=== PATIENT | female | born 1995 | race Caucasian/White ===

== ENCOUNTER 2016-10-08 13:32 | Emergency (ER) | payer MEDICAID, OTHER ==
[~2016-10-08 13:32] MED LIST: TRAM50 PO
[2016-10-08 13:50] VITALS: BP 93/62; PULSE 83; RESP 16; TEMP 98.7; O2SAT 97
[2016-10-08 14:12] LABS: BLOOD, URINE NEG (NEG); GLUCOSE,URINE NEG (NEG); KETONE, URINE NEG (NEG); NITRITE,URINE NEG (NEG); PH, URINE 5.5 (5.0-8.5)
[2016-10-08 14:43] LABS: METHOD OF COLLECTION CLEAN CATCH; URINE COLOR YELLOW (YELLW/STRAW)
[2016-10-08 14:44] LABS: COMMENT (UR) CULT NOT INDICATED; CULTURE IF INDICATED CULT NOT INDICATED; RBC, URINE 0-3 /hpf (0-3); SQUAMOUS EPITHELIAL CELL URINE 0-5 /hpf (0-5); WBC, URINE 0-2 /hpf (0-5)
[2016-10-08] MEDS ORDERED: AZITHROMYCIN PWD FOR SUSP 1 GM PACKET PO ONE (14:45)
--- NOTE | 2016-10-08 14:45 | PD ---
HPI Chief Complaint: Abdominal Pain Time Seen by Provider: 14:23 Travel History International Travel<30 days: No Contact w/Intl Traveler<30days: No Traveled to known affect area: No History of Present Illness HPI The patient was seen and examined in the presence of the nurse. She complains of left-sided pelvic pain. Duration 3 days. She also complains of vaginal discharge. Earlier she had vaginal itching. Denies bleeding. Some severity is mild to moderate. No alleviating factors. She's been eating well. No vomiting or diarrhea or fever. PFSH Past Medical History Medical History: Denies Significant Hx Anemia: Yes Diminished Hearing: No Influenza Vaccination: No ?: Not LMP: 07/12 DENIES : 1 Para: 1 Past Surgical History Surgical History: No Previous Surgery Social History Alcohol Use: No Tobacco Use: No Substance Use: No Allergies-Medications (Allergen,Severity, Reaction): Coded Allergies: No Known Allergies (Unverified , 10/08/16) Reported Meds & Prescriptions Reported Meds & Active Scripts Active No Active Prescriptions or Reported Medications Review of Systems General / Constitutional: No: Fever Eyes: No: Visual changes HENT: No: Headaches Cardiovascular: No: Chest Pain or Discomfort Respiratory: No: Shortness of Breath Gastrointestinal: Positive: Nausea, Abdominal Pain Genitourinary: Positive: Pelvic Pain, No: Dysuria Musculoskeletal: No: Pain Skin: No Rash Neurologic: No: Weakness Psychiatric: No: Depression Endocrine: No: Polydipsia Hematologic/Lymphatic: No: Easy Bruising Physical Exam Narrative GENERAL: Well-nourished, well-developed patient in no apparent distress. SKIN: Warm and dry. Has birthmark on the left cheek and left leg HEAD: Atraumatic. Normocephalic. EYES: Pupils equal and round. No scleral icterus. No injection or drainage. ENT: No nasal bleeding or discharge. Mucous membranes pink and moist. NECK: Trachea midline. No JVD. CARDIOVASCULAR: Regular rate and rhythm. No murmur appreciated. RESPIRATORY: No accessory muscle use. Clear to auscultation. Breath sounds equal bilaterally. GASTROINTESTINAL: Abdomen soft, non-tender, nondistended. Hepatic and splenic margins not palpable. MUSCULOSKELETAL: No obvious deformities. No clubbing. No cyanosis. No edema. NEUROLOGICAL: Awake and alert. No obvious cranial nerve deficits. Motor grossly within normal limits. Normal speech. PSYCHIATRIC: Appropriate mood and affect; insight and judgment normal. Pelvic: No cervical motion tenderness. No blood. There is a whitish discharge in the vault which was sampled. No adnexal mass. Minimal left adnexal tenderness Data Data Last Documented VS Vital Signs Date Time Temp Pulse Resp B/P Pulse Ox O2 Delivery O2 Flow Rate FiO2 10/08/16 13:50 98.7 83 16 93/62 97 Orders Urinalysis - C+S If Indicated (10/08/16 13:56) Ed Urine Pregnancytest Poc (10/08/16 14:06) Wet Prep Profile (10/08/16 14:36) Gc And Chlamydia Pcr (10/08/16 14:36) Azithromycin Powd Pack (Zithromax Powd P (10/08/16 14:45) Labs Laboratory Tests Test 10/08/16 10/08/16 13:55 14:45 Urine Collection Type CLEAN CATCH Urine Color YELLOW Urine Turbidity CLEAR Urine pH 5.5 Urine Specific [place] 1.020 Urine Protein NEG mg/dL Urine Glucose (UA) NEG mg/dL Urine Ketones NEG mg/dL Urine Occult Blood NEG Urine Nitrite NEG Urine Bilirubin NEG Urine Leukocyte Esterase NEG Urine RBC 0-3 /hpf Urine WBC 0-2 /hpf Urine Squamous Epithelial 0-5 /hpf Cells Microscopic Urinalysis Comment CULT NOT INDICATED Urine Collection Time 13:55 Clue Cells (Wet Prep) NONE SEEN Vaginal Trichomonas (Wet Prep) NONE SEEN Vaginal Yeast (Wet Prep) NONE SEEN MDM Medical Decision Making Medical Screen Exam Complete: Yes Emergency Medical Condition: Yes Medical Record Reviewed: Yes Differential Diagnosis Differential diagnosis includes PID, ectopic , ovarian cyst, ovarian torsion, endometriosis. Narrative Course I have reviewed the patient's electronic medical record. Urine is negative Urinalysis is normal Wet prep is negative GC and Chlamydia swabs sent Abdomen is soft and benign and nontender I gave her 2 g of oral Zithromax Tramadol written for symptom relief Has a fairly nonspecific pelvic pain Covered her for cervicitis Not consistent with PID Diagnosis Primary Impression: Pelvic pain Additional Instructions: The patient was advised to follow up with their physician and return if they worsen. Med/Other Pt SpecificInfo: Prescription(s) given Scripts Tramadol 50 Mg Tab50 Mg PO Q6H PRN (PAIN) #20 TAB Ref 0 Prov:Gus Pink MD 10/08/16 Disposition: 01 DISCHARGE HOME Condition: Stable Gus Pink MD Oct 08, 2016 14:45
[2016-10-08] MEDS ORDERED: TRAM50TA PO (15:23)
[2016-10-08 15:49] VITALS: BP 122/65; PULSE 66; RESP 18; O2SAT 99
[2016-10-08 21:33] LABS: CHLAMYDIA PCR NOT DETECTED (NOT DETECT); NEISSERIA PCR NOT DETECTED (NOT DETECT)
== END 2016-10-08 15:54 | disposition home or self-care (01) ==
LOC: PHED 13:32
DX: R10.2 Pelvic and perineal pain (principal); N89.8 Other specified noninflammatory disorders of vagina
CPT/HCPCS: 81001; 84703; 87210; 87491; 87591; 99284

== ENCOUNTER 2016-10-30 17:04 | Emergency (ER) | payer MEDICAID, OTHER ==
[~2016-10-30] VITALS: Ht 157.5 cm; Wt 54.0 kg
[~2016-10-30 17:04] MED LIST changes: -TRAM50 PO; +TRAM50TA PO
[2016-10-30 17:22] VITALS: BP 103/69; PULSE 78; RESP 16; TEMP 97.6; O2SAT 98
[2016-10-30] MEDS ORDERED: ORPHENADRINE INJ 60 MG/2 ML AMP IM ONE (18:45)
[2016-10-30] MEDS ORDERED: BACL10TA PO (18:45)
[2016-10-30] MEDS ORDERED: IBUP800T23 PO (18:45)
[2016-10-30] MEDS ORDERED: KETOROLAC TROMETHAMINE 60 MG/2 ML (IM) VIAL IM ONE (18:45)
--- NOTE | 2016-10-30 18:49 | PD ---
HPI Chief Complaint: Cold / Flu Symptoms Time Seen by Provider: 18:40 Travel History International Travel<30 days: No Contact w/Intl Traveler<30days: No Traveled to known affect area: No History of Present Illness HPI 20-year-old female presents for evaluation of back pain. Symptoms started 1 week ago. It is an aching pain that is worse when breathing or moving. Denies chest pain or shortness of breath, cough or congestion, abdominal pain, nausea or vomiting, hematuria, dysuria, numbness or tingling or weakness in the extremities. She does not recall any trauma or heavy lifting. She has no other complaints. [facility] Past Medical History Medical History: Denies Significant Hx Anemia: Yes Diminished Hearing: No ?: Not LMP: 10/16/16 : 1 Para: 1 Social History Alcohol Use: No Tobacco Use: No Substance Use: No Allergies-Medications (Allergen,Severity, Reaction): Coded Allergies: No Known Allergies (Unverified , 10/30/16) Reported Meds & Prescriptions Reported Meds & Active Scripts Active Baclofen 10 Mg Tab 10 Mg PO TID 10 Days Ibuprofen 800 Mg Tab 800 Mg PO Q6HR PRN Review of Systems Except as stated in HPI: all other systems reviewed are Neg Physical Exam Narrative GENERAL: Well-nourished female in no acute distress SKIN: Warm and dry. No rash HEAD: Atraumatic. Normocephalic. EYES: Pupils equal and round. No scleral icterus. No injection or drainage. ENT: No nasal bleeding or discharge. Mucous membranes pink and moist. NECK: Trachea midline. No JVD. CARDIOVASCULAR: Regular rate and rhythm. No murmur appreciated. RESPIRATORY: No accessory muscle use. Clear to auscultation. Breath sounds equal bilaterally. GASTROINTESTINAL: Abdomen soft, non-tender, nondistended. Hepatic and splenic margins not palpable. MUSCULOSKELETAL: No obvious deformities. No tenderness to palpation along the cervical thoracic or lumbar midline spine. There is some tenderness to palpation to the paravertebral musculature of the lower thoracic region. NEUROLOGICAL: Awake and alert. No obvious cranial nerve deficits. Motor grossly within normal limits. Normal speech. Data Data Last Documented VS Vital Signs Date Time Temp Pulse Resp B/P Pulse Ox O2 Delivery O2 Flow Rate FiO2 10/30/16 17:22 97.6 78 16 103/69 98 Orders Ketorolac Inj (Toradol Inj) (10/30/16 18:45) Orphenadrine Inj (Norflex Inj) (10/30/16 18:45) MDM Medical Decision Making Medical Screen Exam Complete: Yes Emergency Medical Condition: Yes Medical Record Reviewed: Yes Differential Diagnosis Muscle strain, muscle spasm, spondylolysis, spinal stenosis, renal stone, pyelonephritis, costochondritis, pulmonary embolism, pneumothorax Narrative Course 20-year-old female with back pain for 1 week with no trauma. Physical examination is unremarkable. Suspect musculoskeletal pain based on examination. She'll be treated with NSAIDs and muscle relaxants and advised to follow-up with primary care physician. Diagnosis Primary Impression: Back pain Qualified Code: M54.6 - Acute bilateral thoracic back pain Additional Instructions: Medication as needed. Take ibuprofen with meals. Do not drive or drug alcohol when taking baclofen. Avoid heavy lifting or strenuous activity. Follow-up in one week with primary care physician. Return for any emergent medical conditions. Med/Other Pt SpecificInfo: Prescription(s) given Scripts Baclofen 10 Mg Tab10 Mg PO TID 10 Days Ref 0 Prov:Doe Soliman MD 10/30/16 Ibuprofen 800 Mg [id number] Mg PO Q6HR PRN (PAIN) #40 TAB Ref 0 Prov:Doe Soliman MD 10/30/16 Disposition: 01 DISCHARGE HOME Condition: Stable Addy Rocha Oct 30, 2016 18:49
== END 2016-10-30 19:09 | disposition home or self-care (01) ==
LOC: PHEFT 17:04
DX: M54.6 Pain in thoracic spine (principal)
CPT/HCPCS: 99283

== ENCOUNTER → 2016-11-15 | Outpatient (CLI) | payer MEDICAID, OTHER ==
[~2016-11-15] MED LIST changes: +BACL10TA PO; +IBUP800T23 PO; -TRAM50TA PO
[2016-11-15 11:07] LABS: HEMATOCRIT 39.7 % (35.0-46.0); MEAN CELL VOLUME 83.7 FL (80.0-100.0); MEAN CORPUSCULAR HGB CONC 33.4 % (32.0-36.0); PLATELET COUNT 260 TH/MM3 (150-450); RED BLOOD COUNT 4.74 MIL/MM3 (4.00-5.30); RED CELL DISTRIBUTION WIDTH 14.9 % (11.6-17.2); REVIEW FLAG FINAL; WHITE BLOOD COUNT 5.8 TH/MM3 (4.0-11.0)
[2016-11-15 11:14] LABS: APTT (PATIENT) 26.5 SEC (24.3-30.1); PROTHROMBIN TIME - PATIENT 11.2 SEC (9.8-11.6)
[2016-11-15 11:19] LABS: BACTERIA, URINE FEW /hpf; BLOOD, URINE NEG (NEG); GLUCOSE,URINE NEG (NEG); KETONE, URINE NEG (NEG); MUCUS URINE FEW /lpf (OCC); NITRITE,URINE NEG (NEG); SQUAMOUS EPITHELIAL CELL URINE 7 /hpf (0-5); URINE COLOR YELLOW (YELLW/STRAW)
--- NOTE | 2016-11-15 11:24 | EKG ---
Date Performed: 11/15/2016 Time Performed: 11:10:45 PTAGE: 20 years EKG: Sinus rhythm POSSIBLE LEFT ATRIAL ENLARGEMENT POSSIBLE RIGHT VENTRICULAR CONDUCTION DELAY BORDERLINE ECG NO PREVIOUS TRACING DOCTOR: Xavier Man Interpretating Date/Time 11/15/2016 11:22:02
[2016-11-15 11:27] LABS: ALT (GPT) 14 U/L (10-53); ANION GAP 7 MEQ/L (5-15); AST (GOT) 10 U/L (15-37); BICARBONATE 28.7 MEQ/L (21.0-32.0); BLOOD UREA NITROGEN 11 MG/DL (7-18); CHLORIDE 106 MEQ/L (98-107); GLOMERULAR FILTRATION RATE 134 ML/MIN (>89); GLUCOSE,FASTING 77 MG/DL (74-99); POTASSIUM 4.3 MEQ/L (3.5-5.1); SODIUM (NA) 142 MEQ/L (136-145)
[2016-11-15 11:29] LABS: ALKALINE PHOSPHATASE 59 U/L (45-117); TOTAL BILIRUBIN ADULT 0.8 MG/DL (0.2-1.0)
[2016-11-17 16:14] LABS: URINE ANABASINE <2.0 ng/mL (<2.0); URINE COTININE 55 ng/mL (<5.0); URINE NICOTINE 21 ng/mL (<2.0); URINE NORNICOTINE 7.3 ng/mL (<2.0)
== END ==
LOC: HCAV 10:28
DX: Z01.818 Encounter for other preprocedural examination (principal); R94.31 Abnormal electrocardiogram [ECG] [EKG]
CPT/HCPCS: 36415; 80053; 80323; 81001; 85027; 85610; 85730; 86703; 93005; G0480

== ENCOUNTER 2017-08-02 07:36 | Emergency (ER) | payer MEDICAID ==
[~2017-08-02] VITALS: Ht 157.5 cm; Wt 49.4 kg
[~2017-08-02 07:36] MED LIST changes: +IBUP1TAB7 PO; -IBUP800T23 PO
[2017-08-02 07:39] VITALS: BP 116/70; PULSE 97; RESP 16; TEMP 97.7; O2SAT 100
--- NOTE | 2017-08-02 08:07 | PD ---
HPI Chief Complaint: GI Complaint Time Seen by Provider: 08:01 Travel History International Travel<30 days: No Contact w/Intl Traveler<30days: No Traveled to known affect area: No History of Present Illness HPI Is 21-year-old female is complaining of vomiting. She says that she has started vomiting yesterday morning the vomiting has not stopped. She says she is not . She does not recall eating anything unusual. His been no diarrhea. She is having some epigastric pain. The pain started after vomiting PFSH Past Medical History Anemia: Yes Diminished Hearing: No Influenza Vaccination: No ?: Not LMP: states 1 month ago : 1 Para: 1 Past Surgical History Surgical History: No Previous Surgery Social History Alcohol Use: No Tobacco Use: No Substance Use: No Allergies-Medications (Allergen,Severity, Reaction): Coded Allergies: No Known Allergies (Unverified Adverse Reaction, Unknown, 08/02/17) Reported Meds & Prescriptions Reported Meds & Active Scripts Active No Active Prescriptions or Reported Medications Review of Systems General / Constitutional: No: Fever, Chills Eyes: No: Diploplia, Blurred Vision HENT: No: Headaches, Vertigo Cardiovascular: No: Chest Pain or Discomfort, Palpitations Respiratory: No: Cough Gastrointestinal: Positive: Nausea, Vomiting, Abdominal Pain, No: Diarrhea Genitourinary: No: Urgency, Frequency Musculoskeletal: No: Myalgias Skin: No Rash Neurologic: No: Syncope Physical Exam Narrative GENERAL: Well-developed female SKIN: Focused skin assessment warm/dry. HEAD: Atraumatic. Normocephalic. EYES: Pupils equal and round. No scleral icterus. No injection or drainage. ENT: No nasal bleeding or discharge. Mucous membranes pink and moist. NECK: Trachea midline. No JVD. CARDIOVASCULAR: Regular rate and rhythm. No murmur appreciated. RESPIRATORY: No accessory muscle use. Clear to auscultation. Breath sounds equal bilaterally. GASTROINTESTINAL: Abdomen soft, there is epigastric tenderness nondistended. Hepatic and splenic margins not palpable. MUSCULOSKELETAL: No obvious deformities. No clubbing. No cyanosis. No edema. NEUROLOGICAL: Awake and alert. No obvious cranial nerve deficits. Motor grossly within normal limits. Normal speech. PSYCHIATRIC: Appropriate mood and affect; insight and judgment normal. Data Data Last Documented VS Vital Signs Date Time Temp Pulse Resp B/P (MAP) Pulse Ox O2 Delivery O2 Flow Rate FiO2 08/02/17 08:47 96 17 100 Room Air 08/02/17 07:39 97.7 116/70 (85) Orders Orders Complete Blood Count With Diff (08/02/17 08:04) Comprehensive Metabolic Panel (08/02/17 08:04) Lipase (08/02/17 08:04) Sodium Chlor 0.9% 1000 Ml Inj (Ns 1000 M (08/02/17 08:15) Sodium Chlor 0.9% 1000 Ml Inj (Ns 1000 M (08/02/17 08:15) Ondansetron Inj (Zofran Inj) (08/02/17 08:15) Pantoprazole Inj (Protonix Inj) (08/02/17 08:15) Prochlorperazine Inj (Compazine Inj) (08/02/17 08:45) Morphine Inj (Morphine Inj) (08/02/17 08:45) Labs Laboratory Tests Test 08/02/17 08:14 White Blood Count 12.3 TH/MM3 Red Blood Count 4.84 MIL/MM3 Hemoglobin 13.9 GM/DL Hematocrit 42.2 % Mean Corpuscular Volume 87.1 FL Mean Corpuscular Hemoglobin 28.6 PG Mean Corpuscular Hemoglobin Concent 32.9 % Red Cell Distribution Width 13.0 % Platelet Count 293 TH/MM3 Mean Platelet Volume 7.8 FL Neutrophils (%) (Auto) 89.3 % Lymphocytes (%) (Auto) 5.9 % Monocytes (%) (Auto) 4.2 % Eosinophils (%) (Auto) 0.3 % Basophils (%) (Auto) 0.3 % Neutrophils # (Auto) 11.1 TH/MM3 Lymphocytes # (Auto) 0.7 TH/MM3 Monocytes # (Auto) 0.5 TH/MM3 Eosinophils # (Auto) 0.0 TH/MM3 Basophils # (Auto) 0.0 TH/MM3 CBC Comment DIFF FINAL Differential Comment Blood Urea Nitrogen 9 MG/DL Creatinine 0.60 MG/DL Random Glucose 134 MG/DL Total Protein 8.1 GM/DL Albumin 4.7 GM/DL Calcium Level 9.4 MG/DL Alkaline Phosphatase 64 U/L Aspartate Amino Transf (AST/SGOT) 15 U/L Alanine Aminotransferase (ALT/SGPT) 14 U/L Total Bilirubin 0.8 MG/DL Sodium Level 142 MEQ/L Potassium Level 3.1 MEQ/L Chloride Level 103 MEQ/L Carbon Dioxide Level 24.1 MEQ/L Anion Gap 15 MEQ/L Estimat Glomerular Filtration Rate 125 ML/MIN Lipase 64 U/L [facility] Medical Decision Making Medical Screen Exam Complete: Yes Emergency Medical Condition: Yes Medical Record Reviewed: Yes Differential Diagnosis Differential includes food poisoning, viral syndrome, acute gastroenteritis dehydration Narrative Course Patient has been given IV fluids and Zofran. She reports feeling better. Repeat examination shows the abdomen be soft and nontender. She'll be released with prescription for Zofran Diagnosis Primary Impression: Acute gastritis without bleeding Scripts Ondansetron Odt (Zofran Odt) 4 Mg Tab 4 MG SL Q6HR Y for Nausea/Vomiting, #10 TAB 0 Refills Prov: Doe Soliman MD 08/02/17 Disposition: 01 DISCHARGE HOME Condition: Stable Doe Soliman MD Aug 02, 2017 08:07
[2017-08-02] MEDS ORDERED: SODIUM CHLOR 0.9% 1000 ML INJ 1,000 ML IV ONE ×2 (08:15)
[2017-08-02] MEDS ORDERED: ONDANSETRON HCL 4 MG/2 ML VIAL IV PUSH ONE (08:15)
[2017-08-02] MEDS ORDERED: PANTOPRAZOLE SODIUM 40 MG VIAL IV PUSH ONE (08:15)
[2017-08-02 08:23] LABS: AUTOMATED NEUTROPHIL # 11.1 TH/MM3 (1.8-7.7); BASOPHIL % 0.3 % (0.0-2.0); EOSINOPHIL % 0.3 % (0.0-4.0); HEMATOCRIT 42.2 % (35.0-46.0); HEMO FLAGS DIFF FINAL; LYMPH % 5.9 % (9.0-44.0); LYMPHOCYTE # 0.7 TH/MM3 (1.0-4.8); MEAN CELL VOLUME 87.1 FL (80.0-100.0); MEAN CORPUSCULAR HEMOGLOBIN 28.6 PG (27.0-34.0); MEAN CORPUSCULAR HGB CONC 32.9 % (32.0-36.0); MONO % 4.2 % (0.0-8.0); NEUT % 89.3 % (16.0-70.0); PLATELET COUNT 293 TH/MM3 (150-450); RED BLOOD COUNT 4.84 MIL/MM3 (4.00-5.30); WHITE BLOOD COUNT 12.3 TH/MM3 (4.0-11.0)
[2017-08-02] MEDS ORDERED: MORPHINE SULFATE 4 MG/ML INJ IV PUSH ONE (08:45)
[2017-08-02] MEDS ORDERED: PROCHLORPERAZINE INJ 10 MG/2 ML VIAL IV PUSH ONE (08:45)
[2017-08-02 08:47] VITALS: PULSE 96; RESP 17; O2SAT 100
[2017-08-02 09:12] LABS: BLOOD UREA NITROGEN 9 MG/DL (7-18); GLOMERULAR FILTRATION RATE 125 ML/MIN (>89); POTASSIUM 3.1 MEQ/L (3.5-5.1); SODIUM (NA) 142 MEQ/L (136-145)
[2017-08-02 09:13] LABS: CHLORIDE 103 MEQ/L (98-107)
[2017-08-02 09:26] LABS: ALKALINE PHOSPHATASE 64 U/L (45-117); ALT (GPT) 14 U/L (10-53); ANION GAP 15 MEQ/L (5-15); AST (GOT) 15 U/L (15-37); BICARBONATE 24.1 MEQ/L (21.0-32.0); TOTAL BILIRUBIN ADULT 0.8 MG/DL (0.2-1.0)
[2017-08-02] MEDS ORDERED: ZOFR4TAB3 SL (09:38)
== END 2017-08-02 10:00 | disposition home or self-care (01) ==
LOC: PHED 07:36
DX: K29.00 Acute gastritis without bleeding (principal)
CPT/HCPCS: 80053; 83690; 85025; 96361; 96374; 96375; 99284; C9113; J0780; J2270; J2405; J7030